=== PATIENT | female | born 1965 | race Two or more races ===

== ENCOUNTER 2018-12-30 19:36 | Emergency (ER) | payer SELFPAY ==
--- NOTE | 2018-12-30 20:34 | ER Document Report ---
ED Medical Screen (RME) - General Chief Complaint: Chest Pain Stated Complaint: CHEST PAIN Time Seen by Provider: 12/30/18 20:29 Mode of Arrival: Medic Information source: Patient, Relative, Emergency Med Personnel Notes: This 53-year-old female presents emergency department via EMS from the urgent care with complaints of chest pain that radiated up to her left side of her neck. Also complains of shortness of breath for the past 2 weeks and feeling dizzy yesterday. Denies history of cardiac disease. Denies nausea vomiting. She received aspirin and 2 nitros from EMS. Pain was relieved with the nitro. I have greeted and performed a rapid initial assessment of this patient. A comprehensive ED assessment and evaluation of the patient, analysis of test results and completion of the medical decision making process will be conducted by additional ED providers. Dictation of this chart was performed using voice recognition software; therefore, there may be some unintended grammatical errors. TRAVEL OUTSIDE OF THE [place] IN LAST 30 DAYS: No - Related Data Allergies/Adverse Reactions: No Known Allergies Allergy (Verified 12/30/18 20:29) Physical Exam - Vital signs Vitals: Temp Pulse Resp BP Pulse Ox 98.6 F 65 16 124/75 95 12/30/18 20:07 12/30/18 20:07 12/30/18 20:07 12/30/18 20:07 12/30/18 20:07 Course - Vital Signs Vital signs: Temp Pulse Resp BP Pulse Ox 98.6 F 65 16 124/75 95 12/30/18 20:07 12/30/18 20:07 12/30/18 20:07 12/30/18 20:07 12/30/18 20:07
[2018-12-30 21:20] LABS: ABSOLUTE BASOPHILS # (AUTO) 0.1 10^3/uL (0.0-0.2); ABSOLUTE EOSINOPHILS # (AUTO) 0.1 10^3/uL (0.0-0.6); ABSOLUTE LYMPHOCYTES (AUTO) 2.7 10^3/uL (0.5-4.7); ABSOLUTE MONOCYTES (AUTO) 0.5 10^3/uL (0.1-1.4); ABSOLUTE NEUT (AUTO) 4.9 10^3/uL (1.7-8.2); BASOPHILS % (AUTO) 0.6 % (0-2); EOSINOPHILS % (AUTO) 1.1 % (0-6); HEMATOCRIT 41.2 % (36.0-47.0); HEMOGLOBIN 14.2 g/dL (12.0-15.5); MEAN CORPUSCULAR HEMOGLOBIN 30.2 pg (27.0-33.4); MEAN CORPUSCULAR HGB CONC 34.4 g/dL (32.0-36.0); MEAN CORPUSCULAR VOLUME 88 fl (80-97); MONOCYTES % (AUTO) 5.6 % (3-13); PLATELET COUNT 194 10^3/uL (150-450); RED BLOOD COUNT 4.69 10^6/uL (3.72-5.28); RED CELL DISTRIBUTION WIDTH 13.5 % (11.5-14.0); SEGMENTED NEUTROPHILS % (AUTO) 59.7 % (42-78); TOTAL CELLS COUNTED % (AUTO) 100 %; WHITE BLOOD COUNT 8.3 10^3/uL (4.0-10.5)
--- NOTE | 2018-12-30 21:28 | RADIOLOGY REPORT (SQ) ---
EXAM DESCRIPTION: XR CHEST 2 VIEWS COMPLETED DATE/TME: 12/30/2018 20:33 CLINICAL HISTORY: 53 years, Female, chest pain sob COMPARISON: None. NUMBER OF VIEWS: Two TECHNIQUE: Frontal and lateral radiographs of the chest were acquired LIMITATIONS: None. FINDINGS: Cardiac and mediastinal contours are normal. Lungs are clear. No pleural effusion or pneumothorax. IMPRESSION: No acute disease. copyright 2010 [employer]- All Rights Reserved
[2018-12-30 21:41] LABS: ALBUMIN 4.5 g/dL (3.5-5.0); ALKALINE PHOSPHATASE 97 U/L (38-126); ANION GAP 9 (5-19); ASPARTATE AMINO TRANSFERASE 36 U/L (14-36); BILIRUBIN,DIRECT 0.1 mg/dL (0.0-0.4); BILIRUBIN,TOTAL 0.9 mg/dL (0.2-1.3); BLOOD UREA NITROGEN 15 mg/dL (7-20); CALCIUM 9.7 mg/dL (8.4-10.2); CARBON DIOXIDE 27 mmol/L (22-30); CHLORIDE 103 mmol/L (98-107); CREATINE KINASE 109 U/L (30-135); GLUCOSE 102 mg/dL (75-110); POTASSIUM 4.1 mmol/L (3.6-5.0); TOTAL PROTEIN 7.5 g/dL (6.3-8.2)
[2018-12-30 21:50] LABS: CREATINE KINASE MB 0.79 ng/mL (<4.55)
[2018-12-30 21:51] LABS: TROPONIN I < 0.012 ng/mL
--- NOTE | 2018-12-31 00:33 | ER Document Report ---
ED General - General Chief Complaint: Chest Pain Stated Complaint: CHEST PAIN Time Seen by Provider: 12/30/18 20:29 Mode of Arrival: Medic TRAVEL OUTSIDE OF THE [place] IN LAST 30 DAYS: No - HPI Notes: 53-year-old female who presents with chest pain. Patient presents to the urgent care but actually developed substernal chest pain that radiates toward her left arm. This began sometime around 4 AM and has been constant since then. Pain was improved somewhat with nitroglycerin. No history of cardiac disease. No history of diabetes, hypertension high cholesterol. Does not smoke. She has some vague shortness of breath the last 2 weeks felt dizzy yesterday. Some minimal cough. Moderate intensity, nonradiating. No other modifying factors, no other associated symptoms, no other provocative or palliative factors. - Related Data Allergies/Adverse Reactions: No Known Allergies Allergy (Verified 12/30/18 20:29) Past Medical History - General Information source: Patient, Relative, Emergency Med Personnel - Social History Smoking Status: Never Smoker Family History: Reviewed & Not Pertinent Patient has suicidal ideation: No Patient has homicidal ideation: No - Medical History Medical History: Negative - Past Medical History Cardiac Medical History: Reports: None Review of Systems - Review of Systems Notes: Review of systems as in the history of present illness, otherwise negative x 10 systems. Physical Exam - Vital signs Vitals: Temp Pulse Resp BP Pulse Ox 98.6 F 65 16 124/75 95 12/30/18 20:07 12/30/18 20:07 12/30/18 20:07 12/30/18 20:07 12/30/18 20:07 - Notes Notes: General: Well developed . HEENT: Normocephalic, atraumatic. Pupils equal round reactive to light. No JVD. Chest: No trauma. Respiratory: Good air exchange, normal excursion. Cardiac: Regular rhythm. No murmurs or gallops. Abdomen: Soft, benign. Nondistended. Nontender. Back: No asymmetry or gross abnormality. Motor: Grossly normal power and tone. Neurologic: Alert, nonfocal. Cranial nerves II-12 are intact. Sensation intact. Vascular: Well perfused. Normal peripheral pulses. Skin: No petechiae or purpura. Course - Re-evaluation Re-evalutation: 12/31/18 00:32 53-year-old female presents with chest pain. Certainly concerning given the character however, prolonged for well over 12 hours. Posttest probability for ACS with greater than 12 hours of chest pain that is unrelenting is relatively low. Doubt venous thrombi embolism, no tachycardia, no tachypnea, no hypoxemia. Consider double chest pain, septal spasm, pneumonia or other etiology. Patient was evaluated by the [facility] provider prior to my evaluation. Studies / interventions have been ordered by this provider and may still be pending. 12/31/18 01:07 Currently awaiting repeat troponin. Patient's daughters arrived and spoken again at length with the patient and her daughter. Patient has her major complaint of pain in her left superior lateral breast. I performed a breast exam that was chaperoned, she has no obvious mass erythema edema or skin changes. I feel no adenopathy in her axillary region. I spent a great deal of time explaining the patient and her daughter the absolute critical importance of outpatient follow-up with primary care or [facility] for her breast pain, I have explained to them very simply that she needs to be worked up and ruled out to make sure this is not a malignancy. 12/31/18 02:18 Patient remains with improvement. All work-up is unremarkable. Discharged home, delta troponin negative. - Vital Signs Vital signs: Temp Pulse Resp BP Pulse Ox 98 F 59 L 13 129/81 H 96 12/31/18 00:12 12/31/18 00:12 12/31/18 00:12 12/31/18 00:12 12/31/18 00:12 - Laboratory Result Diagrams: 12/30/18 21:06 12/30/18 21:06 - EKG Interpretation by Me EKG shows normal: Sinus rhythm, [place], Intervals, QRS Complexes, ST-T Waves - z Discharge - Discharge Clinical Impression: Chest pain Qualifiers: Chest pain type: unspecified Qualified Code(s): R07.9 - Chest pain, unspecified Condition: Stable Disposition: HOME, SELF-CARE Instructions: Chest Pain of Unclear Cause ([facility]) Additional Instructions: See your primary care doctor within 24 hours, return if worsening.
[2018-12-31 03:38] VITALS: BP 112/72
--- NOTE | 2018-12-31 09:09 | EKG REPORT ---
SEVERITY:- NORMAL ECG - SINUS RHYTHM : Confirmed by: Johana Schaefer 31-Dec-2018 09:08:23
== END 2018-12-31 03:35 | disposition home or self-care (01) ==
LOC: ER 19:36
DX: R07.9 Chest pain, unspecified (principal); M79.602 Pain in left arm; R06.02 Shortness of breath; R42 Dizziness and giddiness; R05 Cough
CPT/HCPCS: 36415; 71046; 80053; 82550; 82553; 84484; 85025; 93005; 93010; 99285

== ENCOUNTER 2019-11-28 13:41 | Emergency (ER) | payer SELFPAY ==
[2019-11-28] MEDS ORDERED: KETOROLAC TROMETHAMINE INJ/PF 30 MG/1 ML SDV IM ONE (14:59)
--- NOTE | 2019-11-28 15:50 | RADIOLOGY REPORT (SQ) ---
EXAM DESCRIPTION: ANKLE LEFT COMPLETE; FOOT LEFT COMPLETE IMAGES COMPLETED DATE/TIME: 11/28/2019 3:28 pm REASON FOR STUDY: fall; fall, foot pain COMPARISON: None. FINDINGS: Three views left ankle: Bones look relatively intact. No fracture detected. Mortise mariaa ntained. No significant joint effusion. Mild soft tissue swelling. Three views left foot: Hallux valgus. Mildly osteopenic. No fracture detected. TECHNICAL DOCUMENTATION: JOB ID: [id number] Reading location - IP/workstation name: [email or web address]
--- NOTE | 2019-11-28 15:50 | RADIOLOGY REPORT (SQ) ---
EXAM DESCRIPTION: ANKLE LEFT COMPLETE; FOOT LEFT COMPLETE IMAGES COMPLETED DATE/TIME: 11/28/2019 3:28 pm REASON FOR STUDY: fall; fall, foot pain COMPARISON: None. FINDINGS: Three views left ankle: Bones look relatively intact. No fracture detected. Mortise mariaa ntained. No significant joint effusion. Mild soft tissue swelling. Three views left foot: Hallux valgus. Mildly osteopenic. No fracture detected. TECHNICAL DOCUMENTATION: JOB ID: [id number] Reading location - IP/workstation name: [email or web address]
--- NOTE | 2019-11-28 17:37 | ER Document Report ---
HPI - HPI Pain Level: 2 Notes: 45-year-old female with injury to her left ankle 5 days ago when she was walking and slipped on the floor while feeding her dogs. States she was not able to bear weight initially. Has had pain and swelling since the incident. She has decreased range of motion with flexion-extension inversion and eversion. No lacerations. Did not hit her head when she fell. - CONSTITUTIONAL Constitutional: DENIES: Fever, Chills - REPRODUCTIVE Reproductive: DENIES: : - MUSCULOSKELETAL Musculoskeletal: REPORTS: Extremity pain - left lateral ankle Past Medical History - Social History Smoking Status: Never Smoker Chew tobacco use (# tins/day): No Frequency of alcohol use: None Drug Abuse: None Family History: Reviewed & Not Pertinent Patient has homicidal ideation: No Vertical Provider Document - INFECTION CONTROL TRAVEL OUTSIDE OF THE [place] IN LAST 30 DAYS: No - HEENT HEENT: Atraumatic - NECK Neck: Normal Inspection - RESPIRATORY Respiratory: No Respiratory Distress - MUSCULOSKELETAL/EXTREMETIES Musculoskeletal/Extremeties: Eccymosis Notes: Left ankle is tender to palpation at the posterior lateral malleolus and on the dorsal aspect of the third MTP and midfoot. Ankle is mildly swollen. There is also bruising along the lateral foot. Patient has good dorsalis pedis pulses. Good sensation to light touch. Capillary refill < 2 seconds. - NEURO Level of Consciousness: Awake, Alert Course - Re-evaluation Re-evalutation: 11/28/19 23:57 Imaging shows no fracture of the left ankle. Does show some osteopenia. I discussed his findings with the patient. I have placed her in a splint. I recommended rice, elevation, compression. I also recommend Tylenol and ibuprofen to help with pain relief. Recommend her being weightbearing as able. I also discussed return precautions with the patient. She may return emergency department for worsening symptoms. If she continues to have ankle pain I recommend she also follow-up with her primary care provider for further evaluation and possible referral to orthopedics. Patient knowledges and verbalizes understanding of instructions and plan. All questions answered - Vital Signs Vital signs: Temp Pulse Resp BP Pulse Ox 99.2 F 66 16 136/75 H 97 11/28/19 14:31 11/28/19 14:31 11/28/19 14:31 11/28/19 14:31 08/23/20 14:31 Procedures - Immobilization Left Ankle Pre-Proc Neuro Vasc Exam: Normal Immobilizer type: Posterior ankle Post-Proc Neuro Vasc Exam: Normal Discharge - Discharge Clinical Impression: Left ankle sprain Qualifiers: Encounter type: initial encounter Involved ligament of ankle: unspecified ligament Qualified Code(s): S93.402A - Sprain of unspecified ligament of left ankle, initial encounter Condition: Stable Disposition: HOME, SELF-CARE Instructions: Use of Crutches (OM), Ice & Elevation (OM), Ice Packs (OM), Splint Precautions (OM), Sprained Ankle (OM) Additional Instructions: Your x-ray does not show any acute fracture. You have a sprained ankle. Keep the area elevated, apply ice 20 minutes every 2 hours, and use crutches as needed. You should take ibuprofen 600 mg every 6 hours as needed for pain. Please return if you have worsening pain and swelling, fever greater than 101, you notice spreading redness from the area, or have any other symptoms that are concerning to you. Please follow-up with orthopedic surgery if your symptoms have not improved in the next 2-3 weeks. Please return to the emergency department for worsening symptoms or development of new symptoms. Also recommend you follow-up with your primary care provider.
[2019-11-28 17:45] VITALS: BP 131/69
== END 2019-11-28 17:44 | disposition home or self-care (01) ==
LOC: ER 13:41
DX: S93.402A Sprain of unspecified ligament of left ankle, initial encounter (principal); W01.0XXA Fall on same level from slipping, tripping and stumbling without subsequent striking against object, initial encounter; Y93.K9 Activity, other involving animal care; M85.872 Other specified disorders of bone density and structure, left ankle and foot
CPT/HCPCS: 99284; 96372; 73610; 73630; 29515; J1885